=== PATIENT | female | born 1975 | race Caucasian/White ===

== ENCOUNTER 2018-04-23 13:02 | Emergency (ER) | payer BC ==
[2018-04-23 13:13] VITALS: BP 130/83
[2018-04-23] MEDS ORDERED: Ondansetron ODT TAB* 4 MG PO ONE (13:38)
--- NOTE | 2018-04-23 13:38 | UC ---
Nausea/Vomiting/Diarrhea HPI - HPI Summary HPI Summary: Patient states she started having nausea, vomiting and small amounts of diarrhea since 2am this morning. She denies chills or fever, denies mucus or blood in the stools, whicha re brown. She started prozac about a month ago to treat depression and ever since has had mild constipation but she had 2 BM which were 'significant ' yesterday and it hasn't been a problem. 2 days ago she had some 'ganja' food and felt nauseous. Patient states she has constant LLQ pain which is not crampy ever since vomiting began - History of Current Complaint Chief Complaint: UCAbdominalPain Stated Complaint: ABD PAIN Time Seen by Provider: 04/23/18 13:23 Hx Obtained From: Patient Hx Last Menstrual Period: 03/14/14 ?: No Onset/Duration: Sudden Onset, Lasting Hours Timing: Constant Severity Initially: Mild Severity Currently: Moderate Pain Intensity: 7 Location: Discrete At: LLQ Character: Dull Aggravating Factor(s): Nothing Alleviating Factor(s): Nothing Nausea/Vomiting Presence: Nauseated, Vomiting Vomiting Frequency: Every 15-60 minutes Nausea/Vomiting Duration: 0-12 hours Vomiting Characteristics: Bilious Diarrhea Presence: Yes Diarrhea Frequency: Every 3-4 hours Diarrhea Duration: 0-12 hours Diarrhea Characteristics: Malodorous - Risk Factors Influenza Risk Factors: Negative Surgical Obstruction Risk Factor(s): Negative - Allergies/Home Medications Allergies/Adverse Reactions: Allergies Allergy/AdvReac Type Severity Reaction Status Date / Time No Known Allergies Allergy Verified 04/23/18 13:13 Home Medications: Home Medications FLUoxetine CAP* [Prozac CAP*] 10 mg PO DAILY 04/23/18 [History Confirmed ] PMH/Surg Hx/FS Hx/Imm Hx Psychological History: Depression - Surgical History Surgical History: None - Family History Known Family History: Positive: None - Social History Alcohol Use: Occasionally Substance Use Type: Marijuana Smoking Status (MU): Never Smoked Tobacco Review of Systems Constitutional: Negative Gastrointestinal: Abdominal Pain, Vomiting, Diarrhea All Other Systems Reviewed And Are Negative: Yes Physical Exam Triage Information Reviewed: Yes Appearance: No Pain Distress, Obese Vital Signs: Initial Vital Signs Temp 97.9 F 04/23/18 13:09 Pulse 63 04/23/18 13:09 Resp 20 04/23/18 13:09 BP 130/83 09/29/18 13:09 Pulse Ox 100 04/23/18 13:09 Vital Signs Reviewed: Yes Eyes: Positive: Conjunctiva Clear ENT: Positive: Hearing grossly normal, Pharyngeal erythema, Uvula midline Neck: Positive: Supple, Nontender, No Lymphadenopathy Respiratory: Positive: Chest non-tender, Lungs clear, Normal breath sounds, No respiratory distress Cardiovascular: Positive: RRR, No Murmur, Pulses Normal, Brisk Capillary Refill Abdomen Description: Positive: Nontender, No Organomegaly, Soft Bowel Sounds: Positive: Present Musculoskeletal: Positive: Strength Intact, ROM Intact, No Edema Naus/Vom/Diarrhea Course/Dx - Course Course Of Treatment: 42 yo patient who started with vomiting and diarrhea. No tenderness on abdominal palpation upon physical exam, patient started on a bolus of IV NS and zofran IV once. To continue zofran as needed at home, if vomiting continues despite medication, instructed patient to go to the ER for treatment of dehydration - Differential Dx/Diagnosis Provider Diagnoses: Acute nausea and vomiting. Gastroenteritis vs food poisoning. Dehydration Is Visit Related: No Condition At Discharge: Fair Discharge - Sign-Out/Discharge Documenting (check all that apply): Patient Departure All imaging exams completed and their final reports reviewed: No Studies - Discharge Plan Condition: Stable Disposition: HOME Patient Education Materials: Dehydration (ED), Gastroenteritis (ED), Ondansetron (By mouth), Soft Diet (ED) Referrals: Tammy Byrd MD [Primary Care Provider] - Additional Instructions: follow up with your doctor in a week. If vomiting continues despite medication, please go to ER for parenteral hydration Take medications as prescribed If there is blood in the stool please return to or ER. - Billing Disposition and Condition Condition: STABLE Disposition: Home
[2018-04-23] MEDS ORDERED: Ondansetron INJ* 2 MG/ML VIAL IV ONE (13:47)
[2018-04-23] MEDS ORDERED: NS 0.9% 250 ML* 250 ML IV SCH (14:00)
[2018-04-23] MEDS ORDERED: NS 0.9% 1000 ML* 1,000 ML IV SCH (14:00)
== END 2018-04-23 14:31 | disposition home or self-care (01) ==
LOC: UCEAST 13:02
DX: R11.2 Nausea with vomiting, unspecified (principal); E86.0 Dehydration; R10.32 Left lower quadrant pain; F32.9 Major depressive disorder, single episode, unspecified
CPT/HCPCS: 96361; 96374; 99202; G0463; J2405